=== PATIENT | female | born 1970 | race Caucasian/White ===

== ENCOUNTER → 2017-12-19 | Outpatient (CLI) | payer OTHER ==
[~2017-12-19] MED LIST: AMBIEN 10 MG TA10 MG PO; ASPIRIN81 M2 PO; BACTRIM DS TAB1 EACH PO; BRINTELLIX10 MG PO; BRINTELLIX20 MG PO; BRINTELLIX5 MG PO; BUSPAR 5 MG TABL5 M1; BUSPAR PO; CELEBREX 200 M200 M1 PO; CELEBREX 200 M200 MG PO; CLONAZEPAM 0.50.5 M1 PO; DOVONEX120 GM TP; FLEXERIL PO; HAIR SKIN NAIL1 EACH PO; HYDROCODON-ACE1 EAC5 PO; ICY HOT BALM99.2 GM TP; LAMICTAL200 MG PO; LIDOCAINE 22 %/30 GM MM; MOBIC15 MG PO; MOBIC7.5 M1 PO; MS CONTIN15 MG PO; NICORETTE2 M1 BC; NORCO 10-325 T1 EACH PO; OXYCODONE HCL 55 MG PO; OXYCONTIN15 MG PO; OXYCONTIN20 M1 PO; PERCOCET 10-321 EACH PO; PERCOCET 5-3251 EACH PO; PERCOCET 7.5-31 EACH PO; PRENATAL PO; PRILOSEC 20 MG20 MG PO; ROXICODONE5 M2 PO; SAPHRIS10 MG SL; SEROQUEL 50 MG50 MG PO; TAMSULOSIN HCL0.4 M1 PO; TRIAMCINOLONE A80 G2 TOP; VITAMIN B-1100 M1 PO; WOMEN'S DAILY1 EAC2 PO; XANAX 0.5 MG0.5 MG PO; ZANAFLEX4 MG PO; ZOFRAN ODT4 MG PO; ZOLOFT PO; ZOLOFT100 MG PO
--- NOTE | 2017-12-26 07:59 | PAINCON ---
[address] [address] PAIN MANAGEMENT CONSULTATION Name: KATY CRAVEN Room: [facility] [place]#: [id number] Admission: 12/19/17 Attend Phys: Carol Beltran Discharge: Date of : 68 Report #: [id number] THIS REPORT FOR: //name// CC: Rae Arredondo DATE OF SERVICE: 12/19/2017 HISTORY OF PRESENT ILLNESS: The patient is a 47-year-old female being treated for lumbar radiculopathy, axial back pain requiring complex medication management, history of DJD bilateral knees. Last visit on 10/24/2017, we continued the patient on MS Contin 15 mg b.i.d. (rotated from OxyContin 15 mg b.i.d.), continued on oxycodone 5 mg t.i.d. Tizanidine as needed for spasm. He returns to the pain clinic today noting medications are providing sufficient analgesia to participate in activities of daily living. She is status post bariatric surgery, weighed 340 pounds at her greatest, 220 pounds last visit down to 218 pounds today. The patient notes medications are significantly helpful. She notes she is "better" overall. She worked in 10-day shift, had 2 days off and worked in 7-day shift. With this, she still is quite functional and notes medications are significantly improving her quality of life. She rates a subjective pain at 3 on a VAS. PHYSICAL EXAMINATION: GENERAL: Shows a 47-year-old female. BMI remains elevated at 36.3 kilograms per meter squared, but she is dutifully continuing to lose weight. VITAL SIGNS: Blood pressure 121/80, pulse 84, respirations 16. MUSCULOSKELETAL: Rises from chair using the armrest. Modestly antalgic gait. Diffuse tenderness across the low back. No discrete trigger points are noted. Lower extremity strength is generally preserved. Again, gait is tandem. We reviewed the fact that opiate medications are being used to provide analgesia adequate to support activities of daily living, not attempting to achieve a specific pain score on the 0-10 Visual Analog Scale. The current opiate medications are providing sufficient analgesia to allow the patient to participate in activities of daily living. The patient is not exhibiting any aberrant behavior suggestive of drug diversion. The patient is not having any adverse reactions to medications. The patient is not suffering from daytime somnolence or mental acuity changes. The patient is managing opiate-induced constipation with appropriate kttu-pok-tmdihkv agents and dietary considerations. The patient was counseled on concern for caution with operating a motor vehicle while using opiate medications. A physical exam was performed and the patient[place] [address] PAIN MANAGEMENT CONSULTATION Name: HERBERKATY EL [facility] [id number] Admission: 12/19/17 Attend Phys: Carol Beltran Discharge: Date of : 68 Report #: [id number] All patients with back pain were advised against the bed rest greater than 4 days and were advised to return to normal activities. Pain score assessment was noted and the treatment plan was reviewed with the patient. All current medications, both prescribed and OTC were reviewed and reconciled on the electronic medical record. Tobacco screening was accomplished and smoking cessation was advised when indicated. BMI was noted and diet/exercise modification was recommended for all patients following outside normal parameters. I reviewed with the patient today their responsibilities to safeguard prescription medications, reviewed their responsibility to utilize medications only as prescribed by the physician. They are to seek and receive pain medications only from 1 physician group ( [facility]). They are to use 1 pharmacy and keep the clinic informed if they change pharmacies. Their responsibilities include making followup visits in a timely fashion and to avoid abrupt discontinuation of medication usage. Their responsibilities further include bringing their medications (bottles from the pharmacy with residual pills) to the visit for possible confirmation of pill counts and the patient understands it is their responsibility to submit to random drug screens to ensure both that the medications prescribed are present, and that no other controlled substances are present. All prescriptions provided today were generated electronically. ASSESSMENT: Symptomatic lumbar radiculopathy, axial back pain, requiring complex medication management, stable on baseline medication. RECOMMENDATIONS: Continue MS Contin 15 mg b.i.d., oxycodone 5 mg t.i.d., tizanidine as needed for spasm. Follow up in 2 months for reevaluation. We reviewed her opiate consent to treat contract. We will likely get a buccal drug swab at next visit. It appears we have not had a buccal swab in greater than a year. <ELECTRONICALLY SIGNED> By: Roshan Arredondo DO 12/26/17 0759 [id number] [id number] Arredondo DO /nt
== END ==
LOC: M.PC 04:54
DX: M54.16 Radiculopathy, lumbar region (principal); Z79.899 Other long term (current) drug therapy

== ENCOUNTER → 2018-02-13 | Outpatient (CLI) | payer OTHER ==
--- NOTE | 2018-02-18 08:35 | PAINCON ---
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 The patient required complex medication management. She had bariatric surgery, I believe, last year. Her peak weight was 340 pounds. She was down to 218 pounds at the last visit. She returns to pain clinic today, she notes current medications are providing sufficient analgesia to participate in activities of daily living. She has lost a little more weight, down to 215.4 kilograms per meter squared. BMI remains modestly elevated at 35.6 kilograms per meter squared. Blood pressure 128/66, pulse 64 and respirations 18. Cervical range of motion is good. Rises from the chair using the armrest. Diffuse axial tenderness, though primary pain is in the right knee. Notable edema here. She does have some DJD. Her car broke down and she has been walking 1 mile to and from work the last week. She is quite functional with current medication. She uses MS Contin 15 mg b.i.d., oxycodone 5 mg up to 3 a day for breakthrough pain and tizanidine 4 mg as needed for spasm. We reviewed the fact that opiate medications are being used to provide analgesia adequate to support activities of daily living, not attempting to achieve a specific pain score on the 0-10 Visual Analog Scale. The current opiate medications are providing sufficient analgesia to allow the patient to participate in activities of daily living. The patient is not exhibiting any aberrant behavior suggestive of drug diversion. The patient is not having any adverse reactions to medications. The patient is not suffering from daytime somnolence or mental acuity changes. The patient is managing opiate-induced constipation with appropriate nrni-miv-pvzvrwu agents and dietary considerations. The patient was counseled on concern for caution with operating a motor vehicle while using opiate medications. A physical exam was performed and the patient's functional status was evaluated. All patients with back pain were advised against the bed rest greater than 4 days and were advised to return to normal activities. Pain score assessment was noted and the treatment plan was reviewed with the patient. All current medications, both prescribed and OTC were reviewed and reconciled on the electronic medical record. Tobacco screening was accomplished and smoking cessation was advised when indicated. BMI was noted and diet/[place] [address] PAIN MANAGEMENT CONSULTATION Name: KATY CRAVEN [facility] [id number] Admission: 02/13/18 Attend Phys: Carol Beltran Discharge: Date of : 68 Report #: [id number] modification was recommended for all patients following outside normal parameters. I reviewed with the patient today their responsibilities to safeguard prescription medications, reviewed their responsibility to utilize medications only as prescribed by the physician. They are to seek and receive pain medications only from 1 physician group ( [facility]). They are to use 1 pharmacy and keep the clinic informed if they change pharmacies. Their responsibilities include making followup visits in a timely fashion and to avoid abrupt discontinuation of medication usage. Their responsibilities further include bringing their medications (bottles from the pharmacy with residual pills) to the visit for possible confirmation of pill counts and the patient understands it is their responsibility to submit to random drug screens to ensure both that the medications prescribed are present, and that no other controlled substances are present. All prescriptions provided today were generated electronically. ASSESSMENT: Axial back pain and osteoarthritis, bilateral knees, requiring complex medication management. RECOMMENDATIONS: Long discussion with the patient today about going to wean ongoing opioid use. She has done very well from a functional standpoint. We have elected to continue MS Contin 15 mg b.i.d. by prescription, though I suggest she try dropping her morning MS Contin and simply use oxycodone for breakthrough pain. We will continue 5 mg oxycodone up to 3 times a day. I have taken the liberty of writing for 2 months of current medication and follow up at that time. I told her that I will be leaving the practice and we will have her follow up with Dr. Sofía Fitzpatrick. I did note that there was an error in her oxycodone prescription. It was inadvertently written for OxyContin along with her MS Contin. We will contact the patient and her pharmacy and affect change (s/b oxycodone). <ELECTRONICALLY SIGNED> By: Roshan Arredondo DO 02/18/18 0835 [id number] [id number] Arredondo DO /nt
== END ==
LOC: M.PC 03:01
DX: M54.16 Radiculopathy, lumbar region (principal); M17.0 Bilateral primary osteoarthritis of knee; Z79.899 Other long term (current) drug therapy

== ENCOUNTER → 2018-04-10 | Outpatient (CLI) | payer OTHER ==
--- NOTE | 2018-04-11 07:27 | PAINCON ---
[facility] [address] [place] [address] PAIN MANAGEMENT CONSULTATION Name: KATY CRAVEN Room: [facility] [place]#: [id number] Admission: 04/10/18 Attend Phys: Carol Beltran Discharge: Date of : 68 Report #: [id number] THIS REPORT FOR: //name// CC: aRe Arredondo DATE OF SERVICE: 04/10/2018 HISTORY OF PRESENT ILLNESS: The patient is a very pleasant RN, being treated for ongoing axial back pain, history of lumbar radiculopathy. The patient has osteoarthritis affecting bilateral knees. The patient had bariatric surgery last year. Her peak weight was 340 pounds. She continues to lose weight. She is down to 202 pounds today; she was 218 pounds at last visit. She continues to lose weight. She is physically active. She notes that with weight loss, her knee pain is significantly improving. She still has some axial back and lumbar radicular pain requiring complex medication management. The patient currently is stable on MS Contin 15 mg b.i.d., oxycodone 5 mg t.i.d. This equates to about 52.5 mg morphine equivalents a day. Just barely beyond the 0-50 low risk category. She is doing well with current medication. Rates her pain a 4 on a VAS, has good days where pain is a 0, bad days where it is an 8. Notes pain is exacerbated with physical activity. She tried dropping her morphine tablet to 1 a day, but her functional status decreased and pain increased. PHYSICAL EXAMINATION: GENERAL: Otherwise shows 5 feet 5 inches, 202 pounds female, BMI is 33.6 kilograms per meter squared. VITAL SIGNS: Blood pressure 102/74, pulse 57, respiratory rate 16. NEUROLOGIC: Alert and oriented to person, place and time, judged to be a reasonable historian. MUSCULOSKELETAL: Rises from chair easily. Gait is generally tandem. Diffuse tenderness across the low back. No discrete trigger points are noted. Lower extremity strength is preserved at this time. We reviewed the fact that opiate medications are being used to provide analgesia adequate to support activities of daily living, not attempting to achieve a specific pain score on the 0-10 Visual Analog Scale. The current opiate medications are providing sufficient analgesia to allow the patient to participate in activities of daily living. The patient is not exhibiting any aberrant behavior suggestive of drug diversion. The patient is not having any adverse reactions to medications. The patient is not suffering from daytime somnolence or mental acuity changes. The patient is managing opiate-induced constipation with appropriate vnmc-mhf-toescig agents and dietary considerations. The patient was counseled on concern [place] [address] PAIN MANAGEMENT CONSULTATION Name: KATY CRAVEN [id number] Admission: 04/10/18 Attend Phys: Carol Beltran Discharge: Date of : 68 Report #: [id number] a motor vehicle while using opiate medications. A physical exam was performed and the patient's functional status was evaluated. All patients with back pain were advised against the bed rest greater than 4 days and were advised to return to normal activities. Pain score assessment was noted and the treatment plan was reviewed with the patient. All current medications, both prescribed and OTC were reviewed and reconciled on the electronic medical record. Tobacco screening was accomplished and smoking cessation was advised when indicated. BMI was noted and diet/exercise modification was recommended for all patients following outside normal parameters. I reviewed with the patient today their responsibilities to safeguard prescription medications, reviewed their responsibility to utilize medications only as prescribed by the physician. They are to seek and receive pain medications only from 1 physician group ( [facility]). They are to use 1 pharmacy and keep the clinic informed if they change pharmacies. Their responsibilities include making followup visits in a timely fashion and to avoid abrupt discontinuation of medication usage. Their responsibilities further include bringing their medications (bottles from the pharmacy with residual pills) to the visit for possible confirmation of pill counts and the patient understands it is their responsibility to submit to random drug screens to ensure both that the medications prescribed are present, and that no other controlled substances are present. All prescriptions provided today were generated electronically. ASSESSMENT: Chronic axial back pain, lumbar radiculopathy requiring complex medication management, component of osteoarthritis affecting bilateral knees. RECOMMENDATION: Long with the patient today about therapeutic option. She has been stable on baseline medications. We will have her follow up with Dr. Lee Fitzpatrick for ongoing care. Reviewing the chart, it appears the last random drug screen was in 01/2017. She has had no aberrant behavior suggestive of drug diversion. May suggest we get a random drug screen at next visit, simply to comply with opiate consent to treat contract. Otherwise, the patient is stable on baseline medications. I have taken the liberty of renewing current medication for multi-month. <ELECTRONICALLY SIGNED> By: Roshan Arredondo DO 04/11/18 0727 1402 [id number] Arredondo DO /nt
== END ==
LOC: M.PC 05:01
DX: M54.16 Radiculopathy, lumbar region (principal); M17.0 Bilateral primary osteoarthritis of knee; M54.5 Low back pain; G89.29 Other chronic pain; Z79.899 Other long term (current) drug therapy

== ENCOUNTER → 2018-06-04 | Outpatient (CLI) | payer OTHER ==
--- NOTE | 2018-06-12 16:41 | PAINCON ---
[address] [address] PAIN MANAGEMENT CONSULTATION Name: KATY CRAVEN [facility] [place]#: [id number] Admission: 06/04/18 Attend Phys: Garima Fitzpatrick MD Discharge: Date of : 68 Report #: [id number] THIS REPORT FOR: //name// CC: Rae Jordan DATE OF SERVICE: 06/04/2018 CHIEF COMPLAINT: Low back pain and axial back pain. HISTORY OF PRESENT ILLNESS: The patient is a 48-year-old female who has been seen and followed in the Pain Clinic by Dr. Roshan Arredondo. This is my first visit with the patient. She is a registered nurse. She has chronic ongoing axial back pain. She has a history of lumbar radiculopathy. She has some osteoarthritis, which has been involving both her knees. She has had bariatric surgery. She states that she was 340 pounds, has lost 170 pounds. She feels much better at this juncture. She has lost 12 pounds since she was here last. She remains physically active. She overall feels that things are going much better. She has had no complications from her procedures at this juncture. She finds that her current medical regimen of MS Contin and oxycodone are helpful. She has returned today for renewal of her medications. As you recall, she has a q. year problem with her back. She states that there is some mobility of some of the disks between L3-L4 and L4-L5. When the "vertebral bodies hit one another," she gets some exquisite pain. She states that it is a genetic problem. She is adopted. She has returned today for renewal of her medications. ALLERGIES: DIPHENHYDRAMINE AND ROCEPHIN. CURRENT MEDICATIONS: Vitamin C, Saphris 10 mg sublingual at bedtime, Dovonex 220 mg topical cream, clonazepam 0.5 mg b.i.d., Lamictal 200 mg b.i.d., Lidoderm jelly 2%, morphine ER 15 mg b.i.d., calcium, Nicorette gum 2 grams, Prilosec 20 mg, Roxicodone 5 mg t.i.d., vitamins, vitamin B1, Zanaflex 4 mg. PAST MEDICAL HISTORY: 1. Chronic bipolar type disorder. 2. Sympathetic lumbar radiculopathy. 3. Lumbar spondylosis. 4. Venous insufficiency with lymphatic overload. PAST SURGICAL HISTORY: Birthmark was removed. [place] teeth were extracted. Radiofrequency lesioning on 2 occasions in the low back area. 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 [address] PAIN MANAGEMENT CONSULTATION Name: KATY CRAVEN Room: [facility]#: [id number] Admission: 06/04/18 Attend Phys: Garima Fitzpatrick MD Discharge: Date of : 68 Report #: [id number] REVIEW OF SYSTEMS: Generally good health. Wears glasses. Otherwise, unremarkable. Varicose veins, numbness and tingling sensation lower back, nervousness, depression, and insomnia. LABORATORY DATA: No new laboratory values are available at the time of our interview. PAIN CLINIC ASSESSMENT: 1. Osteoarthritis. The patient states she is not being treated for osteoarthritis, but does have arthritic changes in her low back area. 2. Height 5 feet 5 inches. Weight 190 pounds, BMI is 31.8. 3. Vital signs: Blood pressure 139/53, heart rate 76, respiratory rate 16, room air saturation 96%, temperature 98.4. 4. Pain intensity 01/22, the patient states her baseline is about 3. 5. Fall risk. The patient has not fallen in the last 3 months. 6. Blood thinner. The patient is not on a blood thinning medication. 7. History of hypertension. The patient is not being treated for hypertension. 8. Opioid therapy. The patient receives her medications through the Pain Clinic. 9. Risk assessment. 10. Functional assessment. 11. Recreational drugs. The patient denies use of recreational drugs. 12. Tobacco: The patient stopped tobacco in 2010, had a 23-year smoking history. 13. Alcohol use. The patient denies use of alcoholic beverages. PHYSICAL EXAMINATION: GENERAL: The patient is a well-developed, well-nourished white female. Appears her stated age. She is slightly obese. HEENT: Normocephalic, atraumatic. Extraocular eye muscles intact. Sclerae nonicteric. Mucous membranes are moist. The patient has dentures. NECK: With good range of motion without bruits or adenopathy. LUNGS: Clear to auscultation. HEART: Regular rate. S1, S2. ABDOMEN: Nontender, slightly protuberant. MUSCULOSKELETAL: Upper extremity muscle strength showed to be 5/5 for the major muscle groups with 5/5 building maintenance superintendent strength. Lower extremity without significant scoliosis, kyphosis, or lordosis. The patient states that she has not had back surgery. She has some pain and discomfort, which radiates down into the right lower back in the L5-S1 dermatomal distribution. IMPRESSION: 1. Chronic low back pain treated with complex medical management. 2. Chronic bipolar type disorder. 3. Sympathetic lumbar radiculopathy. 4. Lumbar spondylosis. [facility] [address] [place] [address] PAIN MANAGEMENT CONSULTATION Name: KATY CRAVEN Room: [facility]#: [id number] Admission: 06/04/18 Attend Phys: Garima Fitzpatrick MD Discharge: Date of : 68 Report #: [id number] 5. Venous insufficiency with lymphatic overload. RECOMMENDATIONS: We discussed treatment options with the patient. We will continue with her current medical regimen. She feels overall that things are going reasonably well with the oxycodone as well as with the morphine. The patient would like to have her medications renewed. She feels that they enable her to remain gainfully employed. She has had injections in the past and may consider an injection in the future. At this juncture, she feels that things are going reasonably well and would like to continue with a conservative approach. A script for her medications has been written. We would like to thank you for letting us participate in her care. We hope she continues to improve. <ELECTRONICALLY SIGNED> By: Garima Fitzpatrick MD 06/12/18 1641 1202 1933N. Lee Fitzpatrick MD /nt
== END ==
LOC: M.PC 04:46
DX: M47.26 Other spondylosis with radiculopathy, lumbar region (principal); G89.29 Other chronic pain; I87.2 Venous insufficiency (chronic) (peripheral); F31.81 Bipolar II disorder; Z79.899 Other long term (current) drug therapy

== ENCOUNTER → 2018-08-01 | Outpatient (CLI) | payer OTHER ==
--- NOTE | 2018-08-28 16:08 | PAINCON ---
[address] [address] PAIN MANAGEMENT CONSULTATION Name: KATY CRAVEN Room: [facility]le#: [id number] Admission: 08/01/18 Attend Phys: Garima Fitzpatrick MD Discharge: Date of : 68 Report #: [id number] THIS REPORT FOR: //name// CC: Rae Fitzpatrick DATE OF SERVICE: 08/01/2018 HISTORY: Here for medication renewal. HISTORY OF PRESENT ILLNESS: The patient is a 48-year-old female who has been seen in the pain clinic. As you recall, she suffered from axial back pain. The patient is a registered nurse. She has had some continued axial back pain. Finds that her medications are helpful or helped with her current medical regimen. She has pain, which has radiated down into back in the lumbar radicular pattern. She has some osteoarthritis, which involves both her knees. She has had bariatric surgery. She has lost a total of 170 pounds. She remains physically active. She has had no problem with her medications. Feels that the medications are helpful and has returned today for renewal of her medications. She feels that sometimes she is experiencing some pain and discomfort in the L3-L4 and L4-L5 areas with certain movements. ALLERGIES: DIPHENHYDRAMINE AND ROCEPHIN. CURRENT MEDICATIONS: Vitamin C, Saphris 10 mg sublingual at bedtime, Dovonex 220 mg topical cream, clonazepam 0.5 mg b.i.d., Lamictal 200 mg b.i.d., Lidoderm jelly 2%, morphine ER 15 mg b.i.d., calcium, Nicorette gum 2 grams, Prilosec 20 mg, Roxicodone 5 mg t.i.d., vitamins, vitamin B and Zanaflex 4 mg. PAIN CLINIC/PQRS: 1. Osteoarthritis. The patient states that she does have osteoarthritic changes in her low back area. 2. Height 5 feet 5 inches, weight 183 pounds, BMI is 30. 3. Vital signs: Blood pressure 124/71, heart rate 55, respiratory rate 16, room air saturation 100% and temperature 98.2. 4. Pain score 4/10. 5. Fall risk. The patient has not fallen in the last 3 months. 6. Blood thinner. The patient is not on a blood thinning medication. 7. History of hypertension. The patient has not been treated for hypertension. 8. Opiate therapy. The patient received medications through the pain clinic only. 9. Risk assessment tool. 10. Functional assessment tool. 11. Recreational drug use. The patient denies use of recreational drugs. 12. Tobacco: The patient stopped tobacco in 2010, had a year smoking history. 13. Alcohol: The [place] [address] PAIN MANAGEMENT CONSULTATION Name: KATY CRAVEN Room: [facility]#: [id number] Admission: 08/01/18 Attend Phys: Garima Fitzpatrick MD Discharge: Date of : 68 Report #: [id number] PHYSICAL EXAMINATION: GENERAL: The patient is a well-developed, well-nourished white female. Appears her stated age. She is slightly obese. Affect is appropriate. Speech is fluent. HEENT: Normocephalic, atraumatic. Extraocular eye muscles intact. Sclerae nonicteric. Mucous membranes are moist. The patient has dentures. NECK: With good range of motion without bruits or adenopathy. LUNGS: Clear to auscultation. HEART: Regular rate. S1, S2. ABDOMEN: Nontender, slightly protuberant, bowel sounds present. MUSCULOSKELETAL: Upper extremity muscle straight judged to be 5/5 for the major muscle groups in the upper extremity with 5/5 group muscle cramping power. Lower extremity without significant scoliosis, kyphosis or lordosis. The patient states that she has not had back surgery. Does have some pain and discomfort in the low back area. Pain that radiates down into the L5-S1 dermatomal distribution. IMPRESSION: 1. Chronic low back pain treated with complex medical management. 2. Bipolar disorder. 3. Sympathetic lumbar radiculopathy. 4. Lumbar spondylosis. 5. Venous insufficiency and lymphatic overload. RECOMMENDATIONS: We discussed treatment options with the patient. At this juncture, we will continue with her current medications. Risks and benefits of opioid medications were again reviewed. Possible complication of the procedure of use of these medications, which could include dependence as well as less effective pain relief at the time from tolerance can develop. Overall, the patient feels the medications are helpful. She would like to continue with her use. We will renew the patient's medications. She will follow up in the future as needed. We would like to thank you for letting us participate in her care. We hope she continues to improve. <ELECTRONICALLY SIGNED> By: Garima Fitzpatrick MD 08/28/18 1608 [id number]. Lee Fitzpatrick MD /nt
== END ==
LOC: M.PC 05:28
DX: M47.26 Other spondylosis with radiculopathy, lumbar region (principal); G89.29 Other chronic pain; F31.9 Bipolar disorder, unspecified; I87.2 Venous insufficiency (chronic) (peripheral); Z79.899 Other long term (current) drug therapy

== ENCOUNTER → 2018-08-27 | Outpatient (CLI) | payer OTHER ==
[2018-08-27 14:50] LABS: HEMATOCRIT 39.4 % (37.0-47.0); HEMOGLOBIN 12.8 gm/dL (12.0-15.0); MCH 28.3 pg (26.0-34.0); MCHC 32.6 g/dL (28.0-37.0); MCV 86.8 fL (80.0-100.0); MPV 8.9 fl. (7.2-11.1); RBC 4.53 mil/uL (4.20-5.00); RDW-CV 14.7 % (10.5-14.5); WBC 6.2 thou/uL (4.0-11.0)
== END ==
LOC: M.LAB 14:33
PROVIDERS: Internal Medicine
DX: D64.9 Anemia, unspecified (principal)

== ENCOUNTER → 2018-09-17 | Outpatient (CLI) | payer OTHER ==
--- NOTE | 2018-09-20 17:20 | PAINCON ---
[address] [address] PAIN MANAGEMENT CONSULTATION Name: HERBERKATY EL [id number] Admission: 09/17/18 Attend Phys: Garima Fitzpatrick MD Discharge: Date of : 68 Report #: [id number] THIS REPORT FOR: //name// CC: Rae Fitzpatrick DATE OF SERVICE: 09/17/2018 PRIMARY CARE PHYSICIAN: Rae Banks DO FOLLOWUP: Here for medication renewal. HISTORY: The patient is a 48-year-old female who has been followed in the pain clinic. As you recall, she has chronic back pain. 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 This pain sometimes impacts upon her ability to do nursing. She sometimes experiences pain, radiation down to the lumbar area. She has some osteoarthritic changes involving both knees. She has had bariatric surgery. She has lost a total of 170 pounds. Remains physically active. Finds that her medications are helpful and not problematic. She is able to think clearly. There is no clouding of her sensorium. Overall, she feels that the medication helped when she would like to continue with them. She has been having some pain and discomfort in the L3-L4 and L4-L5 areas with certain activities of movement. ALLERGIES: DIPHENHYDRAMINE, ROCEPHIN. CURRENT MEDICATIONS: Vitamin C, Saphris 10 mg sublingual at bedtime, Dovonex ____ topical cream, clonazepam 0.5 mg b.i.d., Lamictal 200 mg b.i.d., Lidoderm jelly 2%, morphine ER 15 mg b.i.d., calcium, Nicorette gum 2 g, Prilosec 20 mg, oxycodone 5 mg t.i.d., vitamins, vitamin D, Zanaflex 4 mg. PAIN CLINIC ASSESSMENT/PQRS: 1. Osteoarthritis. The patient states that she does have some osteoarthritic changes in her low back area. She has not been treated for rheumatoid arthritis. 2. Height 5 feet 5 inches, weight 178 pounds, BMI is 29.7. 3. Vital signs: Blood pressure 126/52, heart rate 56, respiratory rate 16, room air saturation 99%, temperature 98.3. 4. Pain score 4-5/10. 5. Fall risk. The patient has not fallen in the last 3 months. 6. Blood thinner. The patient is not on blood thinning medication. 7. History of hypertension. The patient is not being treated for hypertension. 8. Opioid therapy greater than 6 weeks. The patient has received her medication from one source, the pain clinic. 9. Risk assessment tool, low for opioid abuse. 10. [place] [address] PAIN MANAGEMENT CONSULTATION Name: KATY CRAVEN Room: [facility]#: [id number] Admission: 09/17/18 Attend Phys: Garima Fitzpatrick MD Discharge: Date of : 68 Report #: [id number] 11. Recreational drug use. The patient denies use of recreational drugs. 12. Tobacco: The patient stopped smoking in 2010, had a number of years smoking history. 13. Alcohol: The patient denies use of alcoholic beverages at this juncture. PHYSICAL EXAMINATION: GENERAL: The patient is a well-developed, well-nourished white female. Appears her stated age. She is alert and oriented x 3. Slightly obese. Affect is appropriate. Speech is fluent. HEENT: Normocephalic, atraumatic. Extraocular eye muscles intact. Sclerae nonicteric. Mucous membranes are moist. The patient has dentures. NECK: With good range of motion without bruits or adenopathy. LUNGS: Clear to auscultation. HEART: Regular rate. S1, S2. ABDOMEN: Nontender, slightly protuberant, bowel sounds present. MUSCULOSKELETAL: Upper extremity muscle strength to be 5/5 for the major muscle groups in the upper extremity and 5/5 for the lower extremities without significant scoliosis, kyphosis or lordosis. The patient states that she feels that her medications are helpful. Pain radiates down into the L5-S1 dermatomal distribution. IMPRESSION: 1. Chronic low back pain treated with complex medical management. 2. Bipolar disorder. 3. Symptomatic lumbar radiculopathy. 4. Lumbar spondylosis, venous insufficiency and lymphatic overload. RECOMMENDATIONS: We discussed treatment options with the patient. At this juncture, we will continue with her medication. A script for her medications of oxycodone 5 mg 1 p.o. t.i.d. and morphine sulfate 15 mg 1 p.o. b.i.d. have been rewritten. The patient will continue with tizanidine to help with the muscle spasms. She will call us if she has any concerns. We would like to thank you for letting us participate in her care. We hope she continues to improve. <ELECTRONICALLY SIGNED> By: Garima Fitzpatrick MD 09/20/18 1720 [id number]. Lee Fitzpatrick MD /PMT
== END ==
LOC: M.PC 05:23
DX: M47.26 Other spondylosis with radiculopathy, lumbar region (principal); G89.29 Other chronic pain; F31.9 Bipolar disorder, unspecified; I87.2 Venous insufficiency (chronic) (peripheral); Z79.899 Other long term (current) drug therapy

== ENCOUNTER → 2018-11-12 | Outpatient (CLI) | payer OTHER ==
--- NOTE | ~2018-11-12 | PAINCON ---
[address] [address] PAIN MANAGEMENT CONSULTATION Name: HERBERKATY EL Room: [facility] Chelle#: [id number] Admission: 11/12/18 Attend Phys: Garima Fitzpatrick MD Discharge: Date of : 68 Report #: [id number] THIS REPORT FOR: //name// CC: Rae Chandler DATE OF SERVICE: 11/12/2018 CHIEF COMPLAINT: "Here for medications. Things are going pretty good." HISTORY OF PRESENT ILLNESS: The patient is a 48-year-old female who has been followed in the pain clinic. As you recall, she continues to have chronic back pain. 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 Feels that the medications quite helpful and enables her to engage in activities of daily living, she would not be able to do without their use. Continues to have pain that radiates down into the lumbar area. Notes that walking stairs, going from a sitting to a standing position as well as activities which entails bending and twisting exacerbate her pain and discomfort. Feels that she is able to think clearly. No problems with the medications. She has pain in the L3-L4, L4-L5 areas with certain movements. ALLERGIES: DIPHENHYDRAMINE AND ROCEPHIN. CURRENT MEDICATIONS: Vitamin C, Saphris 10 mg sublingual at bedtime, Dovonex topical cream, clonazepam 0.5 mg b.i.d., Lamictal 200 mg b.i.d., Lidoderm jelly 2% morphine extended release 15 mg b.i.d., calcium, Nicorette gum 2 grams, Prilosec 20 mg, oxycodone, 5 t.i.d., vitamins, vitamin D, and Zanaflex 4 mg. PAIN CLINIC ASSESSMENT/PQRS: 1. Osteoarthritis. The patient states that she has some osteoarthritic changes in the low back. She has not been treated for rheumatoid arthritis. 2. Height 5 feet 5 inches, weight 175 pounds, BMI is 28. 3. Vital signs: Blood pressure 130/82, heart rate 51, respiratory rate 16, room air saturation 98%, and temperature 98.5. 4. Pain intensity 12/22. 5. Fall risk. The patient has not fallen in the last 3 months. 6. Blood thinner. The patient is not on a blood thinning medication. 7. Hypertension. The patient has not been treated for hypertension. 8. Opioid greater than 6 weeks. The patient received her medications through one source, the Pain Clinic. 9. Assessment risk low for opioids. 10. Functional assessment tool. 11. Recreational drug use. The patient denies use of recreational drugs. 12. Tobacco: The patient has stopped smoking since [address] [address] PAIN MANAGEMENT CONSULTATION Name: KATY CRAVEN [id number] Admission: 11/12/18 Attend Phys: Garima Fitzpatrick MD Discharge: Date of : 68 Report #: [id number] 13. Alcohol: The patient denies use of alcoholic beverages. PHYSICAL EXAMINATION: GENERAL: The patient is a well-developed, well-nourished white female. Appears her stated age. She is alert and oriented x 3. Affect is appropriate. Speech is fluent. HEENT: Normocephalic, atraumatic. Extraocular eye muscles intact. Sclerae nonicteric. The patient uses dentures. NECK: With good range of motion without bruits or adenopathy. LUNGS: Clear to auscultation. HEART: Regular rate. S1, S2. ABDOMEN: Nontender, slightly protuberant, bowel sounds present. MUSCULOSKELETAL: Upper extremity muscle strength is judged to be 5/5 for the upper extremities. Lower extremities 5/5. The patient without significant scoliosis, kyphosis or lordosis. The patient does have some pain that radiates down into the L5-S1 dermatomal distribution. IMPRESSION: 1. Chronic low back pain treated with complex medical management. 2. Bipolar disorder. 3. Some dramatic lumbar radiculopathy. 4. Lumbar spondylosis, venous insufficiency and lymphatic overload. RECOMMENDATIONS: We discussed treatment with the patient. She feels her medications are working reasonably well. She does not have any problems with them. She feels her medication unable her to continue to be active. She does not have any problems with mentation. 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 She would like to continue with the medication. A script for her medications of oxycodone 5 mg 1 p.o. t.i.d., MS Contin 15 mg b.i.d. and Zanaflex have all been rewritten. The patient will call if she has any concerns. We would like to thank you for letting us participate in her care. We hope she continues to improve. By: [id number]. Lee Fitzpatrick MD /marianela
== END ==
LOC: M.PC 04:55
DX: M47.26 Other spondylosis with radiculopathy, lumbar region (principal); I87.2 Venous insufficiency (chronic) (peripheral); R59.9 Enlarged lymph nodes, unspecified; F31.9 Bipolar disorder, unspecified; Z79.899 Other long term (current) drug therapy

== ENCOUNTER → 2019-03-20 | Outpatient (CLI) | payer OTHER ==
--- NOTE | ~2019-03-20 | PAINCON ---
[facility] [address] [place] [address] PAIN MANAGEMENT CONSULTATION Name: HERBERKATY EL [id number] Admission: 03/20/19 Attend Phys: Garima Fitzpatrick MD Discharge: Date of : 68 Report #: [id number] THIS REPORT FOR: //name// CC: Rae Jordan DATE OF SERVICE: 03/20/2019 FOLLOWUP COMPLAINT: Here for medication renewal. HISTORY OF PRESENT ILLNESS: The patient is a 48-year-old female who has been followed in the pain clinic. As you recall, she has continued chronic back pain. She rates her pain today as a 3-4. She finds that the medications are helpful. She has pain in the low back area. She has continued to work at weight loss. She has lost 18 pounds since October. Notes that her pain is worse when she is climbing stairs, sitting and going from a sitting to a standing position, bending and certain other activities of daily living. She feels that her medication of OxyIR, MS Contin and tizanidine are beneficial. She is taking the medications as prescribed. She has returned today with a desire to renew her medications. 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 ALLERGIES: DIPHENHYDRAMINE AND ROCEPHIN. CURRENT MEDICATIONS: Vitamin C, Saphris 10 mg sublingual at bedtime, Dovonex topical creams, clonazepam 0.5 mg b.i.d., Lamictal 200 mg b.i.d., Lidoderm jelly 2%, morphine extended release 15 mg b.i.d., calcium, Nicorette gum 2 grams, Prilosec 20 mg, oxycodone 5 mg t.i.d., vitamins, vitamin D, Zanaflex 4 mg. PAIN CLINIC ASSESSMENT AND PQRS: 1. The patient states that she has some osteoarthritic changes in her low back. She is not being treated for rheumatoid arthritis. 2. Height 5 feet 5 inches, weight 157 pounds, BMI is 26. 3. Vital signs: Blood pressure 106/48, heart rate 81, respiratory rate 16, room air saturation 99%, temperature 98.2. 4. Pain intensity 3-01/22. 5. Fall history. The patient has not fallen in the last 3 months. 6. Blood thinner. The patient is not on a blood thinning medication. 7. Hypertension. The patient is not being treated for hypertension. 8. Opioids greater than 6 weeks. The patient receives medications through one source, the pain clinic. 9. Risk assessment tool. 10. Recreational drug use. The patient denies. 11. Tobacco: The patient has stopped smoking, has not smoked since 2010. 12. Alcohol: The patient [place] [address] PAIN MANAGEMENT CONSULTATION Name: KATY CRAVEN [facility] [id number] Admission: 03/20/19 Attend Phys: Garima Fitzpatrick MD Discharge: Date of : 68 Report #: [id number] PHYSICAL EXAMINATION: GENERAL: The patient is a well-developed, well-nourished, white female. Appears her stated age. She is alert and oriented x 3. Her affect is appropriate. Speech is fluent. HEENT: Normocephalic, atraumatic. Extraocular eye muscles intact. Sclerae nonicteric. Mucous membranes are moist. NECK: Without adenopathy or JVD. HEART: Regular rate. ABDOMEN: Nontender, protuberant. Bowel sounds present. MUSCULOSKELETAL: Without significant scoliosis, kyphosis or lordosis. Upper extremity muscle strength is judged to be 5/5 for the major muscle groups. Lower extremity 5-/5. The patient does have pain, which presently radiates down to the L5-S1 dermatomal distribution. IMPRESSION: 1. Chronic low back pain, treated with complex medical management. 2. History of bipolar disorder. 3. Traumatic lumbar radiculopathy. 4. Lumbar spondylosis. 5. Venous insufficiency and lymphatic overload. RECOMMENDATIONS: We discussed treatment options with the patient. At this juncture, we will continue with her medications. A script for her medications have been renewed. She will continue with the oxycodone 5 mg 1 p.o. t.i.d. as well as MS Contin 15 mg 1 p.o. b.i.d. The patient will also continue with the tizanidine 4 mg p.o. t.i.d. for muscle spasms. She will continue her medication and take it as prescribed. The patient is aware of the problems with opioids. She has seen in the news, the problems associated with drug overdoses. A 70,000 people last year as a result of overdose. She is also aware that opioid medications can over time become less effective secondary to development of tolerance. We have renewed her medications. She will follow up in the near future. She will call us if she has any concerns. The patient is considering surgical option for removal of excess skin secondary to her weight loss. We would like to thank you for letting us participate in her care. By: [id number]. Lee Fitzpatrick MD /KATARINA
== END ==
LOC: M.PC 05:36
DX: Z76.0 Encounter for issue of repeat prescription (principal); M47.26 Other spondylosis with radiculopathy, lumbar region; G89.29 Other chronic pain; I87.2 Venous insufficiency (chronic) (peripheral); Z79.899 Other long term (current) drug therapy

== ENCOUNTER → 2019-05-20 | Outpatient (CLI) | payer OTHER | LOC: M.PC 05:03 | DX: M47.26 Other spondylosis with radiculopathy, lumbar region (principal); F31.9 Bipolar disorder, unspecified; I87.2 Venous insufficiency (chronic) (peripheral); Z79.899 Other long term (current) drug therapy; Z79.891 Long term (current) use of opiate analgesic; Z88.8 Allergy status to other drugs, medicaments and biological substances ==

== ENCOUNTER → 2019-07-08 | Outpatient (CLI) | payer OTHER ==
[~2019-07-08] MED LIST changes: +SERTRALINE HCL50 MG PO
--- NOTE | ~2019-07-08 | PAINCON ---
[address] [address] PAIN MANAGEMENT CONSULTATION Name: KATY CRAVEN Room: [facility]#: [id number] Admission: 07/08/19 Attend Phys: Garima Fitzpatrick MD Discharge: Date of : 68 Report #: [id number] THIS REPORT FOR: //name// CC: Rae Fitzpatrick DATE OF SERVICE: 07/08/2019 CHIEF COMPLAINT: Low back pain with pain that is radiating down into the right buttocks and posterior leg. HISTORY: The patient is a 49-year-old female who has been followed in the pain clinic because of chronic pain in her low back area. She has had chronic back pain for a number of years. She recently started noticing pain that has been radiating down to her right buttocks area. Notes that the pain is more problematic with certain positions. Notes that bending patient note pain that radiates down into the lower buttocks area. She has used a pillow to help try and decrease the amount of discomfort while sitting. Feels that her medications of oxycodone and morphine continue to be beneficial. She has taken the medication as prescribed. She does not have any complications. At this point, because of the pain that is radiating down to her right leg and into the thigh, she feels that imaging might be helpful and she would like to consider the possibility of epidural steroid injection. She feels that her medications enable her to stay active. She is unable to take nonsteroidal anti-inflammatory medications because of history of gastric bypass. ALLERGIES: DIPHENHYDRAMINE AND ROCEPHIN. CURRENT MEDICATIONS: Vitamin C, Saphris 10 mg sublingual at bedtime, Lovenox topical creams, clonazepam 0.5 mg b.i.d., Lamictal 200 mg b.i.d., Lidoderm jelly 2%. Morphine extended release 15 mg, calcium, Nicorette gum 2 ____, Prilosec 20 mg, oxycodone 5 mg 1 p.o. t.i.d., vitamins, vitamin D, and Zanaflex. PAIN CLINIC ASSESSMENT AND PQRS: 1. The patient has some osteoarthritic changes in her low back. She is not being treated for rheumatoid arthritis. 2. Height 5 feet 5 inches, weight 155 pounds, BMI is 25. 3. Vital signs: Blood pressure 97/45, heart rate 67, respiratory rate 16, room air saturation 96%, and temperature 97.5. 4. Pain intensity is 4/10. 5. Fall history: The patient has not fallen in the last 3 months. 6. Blood thinner. The patient is not on a blood thinning medication. 7. Hypertension. The patient is not being treated for hypertension. 8. Opioids greater than 6 weeks. The patient received medication from one source, pain clinic. 9. Risk assessment tool, [place] [address] PAIN MANAGEMENT CONSULTATION Name: KATY CRAVEN Room: [facility]#: [id number] Admission: 07/08/19 Attend Phys: Garima Fitzpatrick MD Discharge: Date of : 68 Report #: [id number] 10. Functional assessment tool. 11. Recreational drug use. The patient denies. 12. Tobacco: The patient stopped smoking in 2010. PHYSICAL EXAMINATION: GENERAL: The patient is a well-developed, well-nourished white female. Appears her stated age. She is alert and oriented x 3. Her affect is appropriate. Speech is fluent. HEENT: Normocephalic, atraumatic. Extraocular eye muscles intact. Sclerae nonicteric. Mucous membranes are moist. NECK: Without adenopathy or JVD. HEART: Regular rate. ABDOMEN: Nontender. Bowel sounds present. EXTREMITIES: Upper extremity muscle strength judged to be 5/5 for the major muscle groups in the upper extremity. The patient has pain and discomfort in lower portion of her back with pain that radiates down from the lower portion of her back into the right buttocks and posterior portion of the leg in the L5-S1 dermatomal distribution. The patient has positive straight leg raise. IMPRESSION: 1. Low back pain with pain and discomfort in the L4-L5 dermatomal distribution. 2. History of bipolar disease. 3. Chronic lumbar radiculopathy. 4. Lumbar spondylosis. 5. Venous insufficiency and lymphatic overload. 6. Chronic pain in the back, treated with complex medical management using opioids. RECOMMENDATIONS: We discussed treatment options with the patient. At this juncture, she feels her medications continue to be helpful. She is able to work without mental impairment. She feels the medications continue to make her activities of daily living much more tolerable. She is having pain that is radiating down the lower portion of her back and down to the right leg to the thigh in the L5-S1 dermatomal distribution. We will proceed with an epidural steroid injection in the future should we need. The patient will undergo an MRI to evaluate the low back area. The patient has lost about 150 pounds. She did have weight greater than 300 pounds before the bypass. At this juncture, she is down to 155 pounds. We will continue with her OxyIR 5 mg 1 p.o. t.i.d. Script for this medication has been written for the next 2 months. The patient will also continue with morphine sulfate 15 mg 1 p.o. b.i.d. for the next 2 months. She feels that the Zanaflex medication is helpful. A script for this medication has been written to help with muscle spasms. We would like to thank you for letting us participate in her care. Overall, things are about 50% improved with her current medical [place] [address] PAIN MANAGEMENT CONSULTATION Name: KATY CRAVEN Room: [facility]#: [id number] Admission: 07/08/19 Attend Phys: Garima Fitzpatrick MD Discharge: Date of : 68 Report #: [id number] us after she has had the MRI. We will then evaluate and see whether or not she would like to proceed with a lumbar epidural steroid injection. By: [id number]. Lee Fitzpatrick MD /marianela
== END ==
LOC: M.PC 08:30
DX: M47.26 Other spondylosis with radiculopathy, lumbar region (principal); G89.29 Other chronic pain; I87.2 Venous insufficiency (chronic) (peripheral); F31.9 Bipolar disorder, unspecified; Z79.899 Other long term (current) drug therapy; Z79.891 Long term (current) use of opiate analgesic

== ENCOUNTER → 2019-09-04 | Outpatient (CLI) | payer OTHER ==
[~2019-09-04] MED LIST changes: +RISPERDAL 1 MG T1 MG PO; +[UNRECOGNIZED DRUG - OTHER]; +[UNRECOGNIZED DRUG - OTHER] PO
--- NOTE | 2019-09-16 09:09 | PAINCON ---
[address] [address] PAIN MANAGEMENT CONSULTATION Name: KATY CRAVEN Room: [facility] [place]#: [id number] Admission: 09/04/19 Attend Phys: Garima Fitzpatrick MD Discharge: Date of : 68 Report #: [id number] THIS REPORT FOR: //name// CC: ADAN Fitzpatrick DATE OF SERVICE: 09/04/2019 PRIMARY CARE PHYSICIAN: Adan Banks DO CHIEF COMPLAINT: Low back pain. HISTORY: The patient is a 49-year-old female who has been followed in the pain clinic because of pain. She has pain in the right buttocks area as well as pain in the posterior portion of her leg. This has been chronic for a number of years. She has had pain that has been radiating down into her right buttocks. Certain positions exacerbate her discomfort. Feels overall that her pain is 75% improved with her current medical regimen. She is not having any problems with her thinking. She finds that her sensorium is clear. States that she has taken her medications as prescribed. She has used epidural steroid injections in the past. At this juncture, she feels that things are going reasonably well and would like to continue with conservative treatment. She is unable to use nonsteroidal anti-inflammatory medications because of history of gastric bypass. ALLERGIES: DIPHENHYDRAMINE AND ROCEPHIN. CURRENT MEDICATIONS: Vitamin C, Saphris 10 mg sublingual at bedtime, Lovenox, topical creams, clonazepam 0.5 mg b.i.d., Lamictal 200 mg b.i.d., Prilosec 20 mg, Lidoderm jelly 2%, morphine extended release 15 mg, calcium, Nicorette gum, oxycodone 5 mg 1 p.o. t.i.d., vitamins, vitamin D, and Zanaflex. PAIN CLINIC ASSESSMENT/PQRS: 1. The patient has some osteoarthritic changes in the low back area. She is not being treated for rheumatoid arthritis. 2. Height 5 feet, weight 151 pounds, BMI is 24.4. 3. Vital signs: Blood pressure 119/73, heart rate 60, respiratory rate 16, room air saturation 97%, and temperature 98.2. 4. Pain intensity 01/22. 5. Fall history: The patient has not fallen in the last 3 months. 6. Blood thinner. The patient is not on a blood thinning medication. 7. Hypertension. The patient is being treated for hypertension. 8. Opioids greater than 6 weeks. The [facility]. 9. Risk assessment tool, low for opioid use. 10. Functional assessment tool, [place] [address] PAIN MANAGEMENT CONSULTATION Name: KATY CRAVEN Room: [facility]#: [id number] Admission: 09/04/19 Attend Phys: Garima Fitzpatrick MD Discharge: Date of : 68 Report #: [id number] 11. Recreational drug use: The patient denies. 12. Tobacco: The patient stopped smoking in 2010. PHYSICAL EXAMINATION: GENERAL: The patient is a well-developed, well-nourished white female. Appears her stated age. She is alert and oriented x 3. Her affect is appropriate. Speech is fluent. HEENT: Normocephalic, atraumatic. Extraocular eye muscles intact. Sclerae nonicteric. Mucous membranes are moist. NECK: Without adenopathy or JVD. HEART: Regular rate. ABDOMEN: Nontender. Bowel sounds present. EXTREMITIES: Upper extremity muscle strength judged to be 5/5 for the major muscle groups in the upper extremity. The patient has pain and discomfort in lower portion of her back with pain that radiates down the posterior portion of her back in the right buttocks, posterior portion of her right leg. L5-S1 dermatomal distribution is affected. Positive straight leg raise. IMPRESSION: Low back pain with pain in the L4-L5 dermatomal distribution as well as in the L5-S1 dermatomal distribution. RECOMMENDATION: The patient states that she is able to take her medications. They are helpful. She is aware that opioids can be problematic for certain people. She does not have any problems with the medications. She is aware that tolerance can develop. She is using her medication as prescribed. Feels that they are beneficial. She is able to work with a clear sensorium. There has been no influence on her judgment. She keeps her medications in a guarded area. She will follow up in the future as needed. Possibility of an epidural steroid injections are available. We would like to thank you for letting us participate in her care. We hope she continues to improve. <ELECTRONICALLY SIGNED> By: Garmia Fitzpatrick MD 09/16/19 [id number]. Lee Fitzpatrick MD /nt
== END ==
LOC: M.PC 05:10
DX: M54.5 Low back pain (principal); G89.29 Other chronic pain; I10 Essential (primary) hypertension; Z79.891 Long term (current) use of opiate analgesic; Z79.899 Other long term (current) drug therapy; Z88.8 Allergy status to other drugs, medicaments and biological substances; Z88.1 Allergy status to other antibiotic agents

== ENCOUNTER → 2019-10-27 | Outpatient (CLI) | payer OTHER ==
[2019-10-27 15:32] LABS: HEMATOCRIT 36.5 % (37.0-47.0); MCH 28.6 pg (26.0-34.0); MCHC 32.8 g/dL (28.0-37.0); MCV 87.2 fL (80.0-100.0); MPV 7.9 fl. (7.2-11.1); RBC 4.19 mil/uL (4.20-5.00); RDW-CV 13.5 % (10.5-14.5); WBC 5.4 thou/uL (4.0-11.0)
[2019-10-27 15:41] LABS: ALBUMIN 3.7 g/dL (3.4-5.0); CALCIUM 8.3 mg/dL (8.5-10.1); CREATININE 0.8 mg/dL (0.6-1.3); MAGNESIUM 1.9 mg/dL (1.8-2.4); POTASSIUM 3.8 mmol/L (3.5-5.1); TOTAL BILIRUBIN 0.2 mg/dL (<0.1-1.0)
== END ==
LOC: M.LAB 15:09
PROVIDERS: Internal Medicine
DX: Z01.818 Encounter for other preprocedural examination (principal)

== ENCOUNTER → 2019-10-30 | Outpatient (CLI) | payer OTHER ==
--- NOTE | ~2019-10-30 | PAINCON ---
[address] [address] PAIN MANAGEMENT CONSULTATION Name: KATY CRAVEN [id number] Admission: 10/30/19 Attend Phys: Garima Fitzpatrick MD Discharge: Date of : 68 Report #: [id number] THIS REPORT FOR: //name// CC: Rae Chandler DATE OF SERVICE: 10/30/2019 CHIEF COMPLAINT: Lumbar radicular pain, medicines continued to be helpful. HISTORY: The patient is a 49-year-old female who has been followed in the pain clinic. As you recall, she still suffers from low back pain. She is considering having an MRI in the near future. She has noticed an increase in her pain. She rates her pain as a 3/10. Pain is worse with activity. She continues to work daily. She has experienced pain down in the right buttocks area as well as the posterior portion of her leg. Pain has been problematic for a number of years. Generally, her pain is about 75% improved with her current medications of morphine, oxycodone and with the muscle relaxant, tizanidine. She does not have any problems with thinking. She is thinking clearly with a clear sensorium. She has taken the medication as prescribed. She is able to remain gainfully employed. ALLERGIES: DIPHENHYDRAMINE AND ROCEPHIN. CURRENT MEDICATIONS: Vitamin C, Saphris 10 mg sublingual at bedtime, Lovenox, topical creams, clonazepam 0.5 mg b.i.d., Lamictal 200 mg b.i.d., Prilosec 20 mg, Lidoderm jelly 2%, morphine extended release 15 mg, calcium, Nicorette gum, oxycodone 5 mg 1 p.o. t.i.d., vitamins, vitamin D, Zanaflex. PAIN CLINIC ASSESSMENT AND PQRS: 1. The patient has some osteoarthritic changes involving the low back area. She is not being treated for rheumatoid arthritis. 2. Height 5 feet 5 inches, weight 153 pounds, BMI is 25.4. 3. Vital signs: Blood pressure 124/50, heart rate 57, respiratory rate 16, room air saturation 98%, temperature 98.0. 4. Pain intensity: 12/22. 5. Fall history: The patient has not fallen in the last 3 months. 6. Blood thinner: The patient is not on a blood thinning medication. 7. Hypertension: The patient is being treated for hypertension. 8. Opioids greater than 6 weeks. The patient [facility]. 9. Risk assessment tool, low for opioid use. 10. Functional assessment tool has been reviewed. 11. Recreational drug use: The patient denies. 12. Tobacco: The patient stopped [place] [address] [address] PAIN MANAGEMENT CONSULTATION Name: KATY CRAVEN Room: [facility]#: [id number] Admission: 10/30/19 Attend Phys: Garima Fitzpatrick MD Discharge: Date of : 68 Report #: [id number] PHYSICAL EXAMINATION: GENERAL: The patient is a well-developed, well-nourished white female. Appears her stated age. She is alert and oriented x 3. Her affect is appropriate. Speech is fluent. HEENT: Normocephalic, atraumatic. Extraocular eye muscles intact. Sclerae nonicteric. Mucous membranes are moist. NECK: Without adenopathy or JVD. HEART: Regular rate. ABDOMEN: Nontender. Bowel sounds present. EXTREMITIES: Upper extremity muscle strength judged to be 5/5 for the major muscle groups in the upper extremity. The patient has pain and discomfort in lower portion of her back with pain that radiates down the posterior portion of her back in the right buttocks. This is in the L5-S1 dermatomal distribution. Positive straight leg raise. IMPRESSION: 1. Low back pain with L4-L5 dermatomal distribution as well as L5-S1 dermatomal distribution. 2. History of bipolar disease. 3. Chronic lumbar radicular pain. 4. Lumbar spondylosis. 5. Venous insufficiency and lymphatic overload. 6. Chronic pain in the back, treated with medical management using complex opioid medications. RECOMMENDATIONS: We discussed treatment options with the patient. At this juncture, we will continue with her current medical regimen. She feels that the morphine is helpful. She finds that the oxycodone is helpful. She notes tizanidine helps with the muscle spasms. She has taken her medication as prescribed. She is aware that opioid medications can be more problematic over time for some people. She has taken her medication as prescribed not showing any signs of addiction. She feels that the medications continue to be helpful and enable her to stay gainfully employed. A script for her medications have been rewritten. The patient will continue with morphine 15 mg 1 p.o. b.i.d. She will also continue with oxycodone 5 mg 1 p.o. t.i.d. She will take the tizanidine 1 p.o. t.i.d. as needed. The patient will call if she has any concerns. We would like to thank you for letting us participate in her care. She continues to find this current medication regimen effective. By: 19N. Lee Fitzpatrick MD /nt
== END ==
LOC: M.PC 01:48
DX: M47.816 Spondylosis without myelopathy or radiculopathy, lumbar region (principal); F32.9 Major depressive disorder, single episode, unspecified; G89.29 Other chronic pain

== ENCOUNTER → 2019-10-31 | Outpatient (CLI) | payer OTHER | LOC: M.MRI 09:49 | DX: M51.16 Intervertebral disc disorders with radiculopathy, lumbar region (principal); M12.88 Other specific arthropathies, not elsewhere classified, other specified site; M48.061 Spinal stenosis, lumbar region without neurogenic claudication; M51.27 Other intervertebral disc displacement, lumbosacral region; M25.78 Osteophyte, vertebrae; M51.37 Other intervertebral disc degeneration, lumbosacral region ==

== ENCOUNTER → 2019-11-06 | Outpatient (CLI) | payer OTHER ==
--- NOTE | ~2019-11-06 | PAINCON ---
[facility] [address] [place] [address] PAIN MANAGEMENT CONSULTATION Name: KATY CRAVEN [facility] [id number] Admission: 11/06/19 Attend Phys: Garima Fitzpatrick MD Discharge: Date of : 68 Report #: [id number] THIS REPORT FOR: //name// CC: Yani Jordan DATE OF SERVICE: 11/06/2019 CHIEF COMPLAINT: Chronic pain. HISTORY: The patient is a 49-year-old female who has been followed in the pain clinic because of chronic low back pain. She has undergone epidural steroid injections in the past. Continues to have pain in spite of her current medical regimen. Rates her pain as a 7/10. She recently had an MRI. She has returned to the pain clinic for review of her MRI and discussion of options. ALLERGIES: DIPHENHYDRAMINE AND ROCEPHIN. CURRENT MEDICATIONS: Vitamin C, Saphris 10 mg sublingual at bedtime, Lovenox, topical creams, clonazepam 0.5 mg b.i.d., Lamictal 200 mg b.i.d., Prilosec 20 mg, Lidoderm jelly 2%, morphine extended release 15 mg, calcium, Nicorette gum, oxycodone 5 mg 1 p.o. t.i.d., vitamins, vitamin D, Zanaflex. PAIN CLINIC ASSESSMENT AND PQRS: 1. The patient has some osteoarthritic changes involving the low back area. She is not being treated for rheumatoid arthritis. 2. Height 5 feet 5 inches, weight is 155 pounds, BMI is 25.8. 3. Vital signs: Blood pressure 126/52, heart rate 54, respiratory rate 18, room air saturation 97%, temperature 97.8. Pain score 7/10. 4. Fall history: The patient has not fallen in the last 3 months. 5. Blood thinner. The patient is not on a blood thinner at this juncture. 6. Hypertension. The patient is being treated for hypertension. 7. Opioids greater than 6 weeks. The patient [facility]. 8. Risk assessment tool, low for opioid use. 9. Functional assessment tool. 10. Recreational drug use: The patient denies. 11. Tobacco: The patient stopped smoking in 2010. PHYSICAL EXAMINATION: GENERAL: The patient is a well-developed, well-nourished white female. Appears her stated age. She is alert and oriented x 3. Her affect is appropriate. Speech is fluent. HEENT: Normocephalic, atraumatic. Extraocular eye muscles intact. Sclerae nonicteric. [place]ucous [place] [address] PAIN MANAGEMENT CONSULTATION Name: KATY CRAVEN Room: [facility]#: [id number] Admission: 11/06/19 Attend Phys: Garima Fitzpatrick MD Discharge: Date of : 68 Report #: [id number] NECK: Without adenopathy or JVD. HEART: Regular rate. ABDOMEN: Nontender. Bowel sounds present. EXTREMITIES: Upper extremity muscle strength judged to be 5/5 for the major muscle groups in the upper extremity. The patient has pain and discomfort in lower portion of her back. Has pain and discomfort that is radiating down into the buttocks area down to the posterior portion of her legs in the L5-S1 dermatomal distribution. The patient has a positive straight leg raise. IMPRESSION: 1. Low back pain in the L4-L5 as well as the L5-S1 dermatomal distribution. 2. History of bipolar disease. 3. Chronic lumbar radicular pain. 4. Lumbar spondylosis. 5. Venous insufficiency with lymphatic overload. 6. Chronic pain in the back treated with medical management and used a complex medical regimen including opioids. 7. Review of MRI. The patient had an MRI performed of her back dated 10/31/2019. The findings were reviewed. A disk was provided by the patient. We were able to pull up the images on our computer. We went through each one of the images, one at a time and described the anatomy/degenerative areas. At L3-L4, there is a mild generalized disk bulge present, combined with moderate bilateral ligamentum flavum thickening and mild posterior epidural lipomatosis. There is borderline mild central canal stenosis. There is akhm-qc-tskfboxt facet arthropathy bilaterally without significant neural foraminal stenosis. 8. L4-L5 mild generalized disk bulge and moderate ligamentum flavum thickening is present with mild posterior epidural lipomatosis. The findings combined to lead to a mild central canal stenosis. There is mild facet arthrosis bilaterally. Mild left neural foraminal stenosis developed near the exiting L4 nerve root. There is no right neural foraminal stenosis. 9. At L5-S1 endplate degeneration and degenerative disk space loss has progressed. Mild generalized disk bulge is present without central canal stenosis. There is mild facet arthropathy bilaterally. When combined with the endplate osteophytes, there is moderate right and dqeo-lh-ctmnhtbb left neural foraminal stenosis with interval progression. 10. No lumbar disk extrusions. 11. Progression of L5-S1 degenerative disk disease. Mild degeneralized disk osteophyte complex combines to contribute moderate right and kqye-qx-ubeyyoxa left neural foraminal stenosis. No central canal stenosis. 12. Borderline mild central canal stenosis at L3-L4 and at L4-L5 due to mild disk bulging, ligamentum flavum thickening and facet arthropathy. Development of mild left L4-L5 neural foraminal stenosis. 13. 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 RECOMMENDATIONS: The patient states that she had spoken with Dr. Roshan Arredondo in the past. The consideration of a spinal [place] [address] PAIN MANAGEMENT CONSULTATION Name: KATY CRAVEN Room: [facility]#: [id number] Admission: 11/06/19 Attend Phys: Garima Fitzpatrick MD Discharge: Date of : 68 Report #: [id number] considered. The patient would like to consider options regarding the spinal cord stimulator trial. We would recommend that she see a neurosurgeon in regards to her MRI findings whether or not the cervical surgery might be a more prudent option at this juncture. We would like to thank you for letting us participate in her care. We hope she continues to improve. By: [id number]. Lee Fitzpatrick MD /marianela
== END ==
LOC: M.PC 04:11
DX: M47.816 Spondylosis without myelopathy or radiculopathy, lumbar region (principal); F32.9 Major depressive disorder, single episode, unspecified

== ENCOUNTER → 2019-12-23 | Outpatient (CLI) | payer OTHER | LOC: M.RAD 09:56 | DX: M47.897 Other spondylosis, lumbosacral region (principal); M12.88 Other specific arthropathies, not elsewhere classified, other specified site; M25.78 Osteophyte, vertebrae ==

== ENCOUNTER → 2019-12-25 | Outpatient (CLI) | payer OTHER ==
--- NOTE | ~2019-12-25 | PAINCON ---
[address] [address] PAIN MANAGEMENT CONSULTATION Name: KATY CRAVEN [id number] Admission: 12/25/19 Attend Phys: Garima Fitzpatrick MD Discharge: Date of : 68 Report #: [id number] THIS REPORT FOR: //name// cc: Rae Banks Anna S. DO ~ THIS REPORT FOR: //name// CC: Rae Jordan DATE OF SERVICE: 12/25/2019 PRIMARY PHYSICIAN: Yani Sheffield DO CHIEF COMPLAINT: Continued low back pain, "I was thinking about getting a spinal cord stimulator evaluation." HISTORY OF PRESENT ILLNESS: The patient is a 49-year-old female, who has been followed in the pain clinic. As you may recall, she suffers from chronic back pain. She has undergone epidural steroid injections in the past. They have not been significantly beneficial long-term. She continues to have pain and rates it as a 5/10 today. She feels that her medications are helpful. Her weekly pain scores between 3 and 10. She has been considering a spinal cord stimulator. She has an appointment to see a psychiatrist on 01/07/2020. She continues to have pain while sitting as well as with activities of daily living. She continues to use Celebrex. She notes improvement in her pain with morphine, oxycodone, and the muscle relaxant, tizanidine. Overall, her pain is about 50% or 75% improved. ALLERGIES: DIPHENHYDRAMINE, ROCEPHIN. CURRENT MEDICATIONS: Vitamin C, Saphris 10 mg sublingual at bedtime, Lovenox, topical creams, clonazepam 0.5 mg b.i.d., Lamictal 200 mg b.i.d., Prilosec 20 mg, Lidoderm jelly 2%, morphine extended release 15 mg, calcium, Nicorette gum, oxycodone 5 mg 1 p.o. t.i.d., vitamins, vitamin D, Zanaflex. PAIN CLINIC ASSESSMENT AND PQRS: 1. The patient does have some arthritic changes involving her low back. She is not being treated for rheumatoid arthritis. 2. Height 5 feet 5 inches, weight 162 pounds, BMI is 27.0. 3. Vital signs: Blood pressure 127/69, heart rate 69, respiratory rate 16, room air saturation 100%, temperature 98.2. 4. Pain intensity 5/10. 5. Fall history: The patient has not fallen since we saw her last. 6. Blood thinner. The patient is not on a [place] [address] PAIN MANAGEMENT CONSULTATION Name: HERBER,KATY Philly Room: [facility]#: [id number] Admission: 12/25/19 Attend Phys: Garima Fitzpatrick MD Discharge: Date of : 68 Report #: [id number] juncture. 7. Hypertension. The patient is being treated for hypertension. 8. Opioids greater than 6 weeks. The patient [facility]. 9. Risk assessment tool: Low for opioid use. 10. Functional assessment tool. 11. Recreational drug use: The patient denies. 12. Tobacco: The patient stopped smoking in 2010. PHYSICAL EXAMINATION: GENERAL: The patient is a well-developed, well-nourished white female. Appears her stated age. She is alert and oriented x 3. Her affect is appropriate. Speech is fluent. HEENT: Normocephalic, atraumatic. Extraocular eye muscles are intact. Sclerae are nonicteric. Mucous membranes are moist. NECK: Without adenopathy or JVD. ABDOMEN: Nontender. Bowel sounds present. EXTREMITIES: Upper extremity muscle strength judged to be 5/5 for the major muscle groups in the upper extremities. The patient has pain and discomfort in the lower portion of her back. Her pain and discomfort continues to radiate down into the buttocks area and down the posterior portion of her legs in the L5-S1 dermatomal distribution. The patient has positive straight leg raise. IMPRESSION: 1. History of chronic low back pain with pain in the L4-L5 as well as the L5-S1 dermatomal distribution. 2. History of bipolar disease. 3. Chronic lumbar radicular pain. 4. Lumbar spondylosis. 5. Venous insufficiency with lymphatic overload. 6. Chronic pain in the back, treated with medical management and complex medical use of opioids. RECOMMENDATIONS: We discussed treatment options with the patient. At this juncture, we will continue with her current medical regimen. She had spoken with Dr. Roshan Arredondo regarding the possibility of a spinal cord stimulator. The patient would like to proceed with that option at this juncture. She is scheduled to see a psychiatrist in the near future. We will then have her follow up with her physician, who does spinal cord stimulation. A script for her medications has been rewritten. She will continue with OxyIR 5 mg 1 p.o. t.i.d., morphine extended release 15 mg 1 p.o. b.i.d. She will continue to monitor her GI tract. She has been provided with Celebrex 200 mg 1 p.o. daily. She will use tizanidine 4 mg 1 p.o. t.i.d. p.r.n. [place] [address] PAIN MANAGEMENT CONSULTATION Name: KATY CRAVEN Room: [facility]#: [id number] Admission: 12/25/19 Attend Phys: Garima Fitzpatrick MD Discharge: Date of : 68 Report #: [id number] We would like to thank you for letting us participate in her care. We hope she continues to improve. By: [id number]. Lee Fitzpatrick MD /nt
== END ==
LOC: M.PC 06:03
DX: M47.816 Spondylosis without myelopathy or radiculopathy, lumbar region (principal); F32.9 Major depressive disorder, single episode, unspecified; G89.29 Other chronic pain

== ENCOUNTER → 2020-02-19 | Outpatient (CLI) | payer OTHER ==
--- NOTE | 2020-03-02 08:21 | PAINCON ---
[place] [address] PAIN MANAGEMENT CONSULTATION Name: KATY CRAVEN [id number] Admission: 02/19/20 Attend Phys: Garima Fitzpatrick MD Discharge: Date of : 68 Report #: [id number] THIS REPORT FOR: //name// cc: Yani Sheffield Linda J. DO ~ THIS REPORT FOR: //name// CC: Rae Chandler DATE OF SERVICE: 02/19/2020 PRIMARY CARE PHYSICIAN: Rae Banks DO CHIEF COMPLAINT: Lumbar back pain. HISTORY: The patient is a 49-year-old female who has been seen and followed in the pain clinic. As you recall, she suffers from chronic back pain. She has undergone epidural steroid injections in the past. 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 She is contemplating spinal cord stimulation. She continues to work through the appropriate prerequisites for spinal cord stimulator placement. She has returned today for renewal of her medications. She is having no complication from their use. She has returned today for refill of her medications. ALLERGIES: DIPHENHYDRAMINE AND ROCEPHIN. CURRENT MEDICATIONS: Vitamin C, Saphris 10 mg sublingual at bedtime, Lovenox, topical creams, clonazepam 0.5 mg b.i.d., Lamictal 200 mg b.i.d., Prilosec 20 mg, Lidoderm jelly 2%, morphine extended release 15 mg, calcium, Nicorette gum, oxycodone 5 mg 1 p.o. t.i.d., vitamins, vitamin D, and Zanaflex. PAIN CLINIC ASSESSMENT AND PQRS: 1. The patient does have some arthritic changes in her back. She is not being treated for rheumatoid arthritis. 2. Height 5 feet 5 inches, weight 164 pounds, BMI is 27. 3. Vital signs: Blood pressure 127/76, heart rate 59, respiratory rate 16, room air saturation is 98%. 4. Temperature 98.2. 5. Pain intensity 5/10. 6. Fall history: The patient has not fallen since we saw her last. 7. Blood thinner. The patient is not on a blood thinning medication at this juncture. 8. Hypertension. The patient is being treated for hypertension. 9. Opioids greater than 6 weeks. [place] [address] PAIN MANAGEMENT CONSULTATION Name: KATY CRAVEN Room: [facility]#: [id number] Admission: 02/19/20 Attend Phys: Garima Fitzpatrick MD Discharge: Date of : 68 Report #: [id number] source, the pain clinic. 10. Risk assessment tool, low for opioid use. 11. Functional assessment tool. 12. Recreational drug use. The patient denies use of recreational drugs. 13. Tobacco: The patient stopped smoking in 2010. PHYSICAL EXAMINATION: GENERAL: The patient is a well-developed, well-nourished white female. Appears her stated age. She is alert and oriented x 3. Her affect is appropriate. Speech is fluent. HEENT: Normocephalic, atraumatic. Extraocular eye muscles intact. Sclerae nonicteric. Mucous membranes are moist. NECK: Without adenopathy or JVD. ABDOMEN: Nontender. Bowel sounds present. EXTREMITIES: Upper extremity muscle strength judged to be 5/5 for the major muscle groups in the upper extremity. The patient has pain and discomfort in lower portion of her back. Has pain that radiates down into the buttocks area in the posterior portion of her legs in the L5-S1 dermatomal distribution. IMPRESSION: 1. History of chronic low back pain with pain in the L4-L5 as well as the L5-S1 dermatomal distribution. 2. History of bipolar disease. 3. Chronic lumbar radicular pain. 4. Lumbar spondylosis. 5. Venous insufficiency with lymphatic overload. 6. Chronic pain in the back treated and medically managed with complex medical management using opioids. RECOMMENDATIONS: We discussed treatment options with the patient. At this juncture, we will continue with her medications. A script for Celebrex will be continued. She will monitor this medication. If she notes some GI complaints, she will stop taking the medications. She will also continue with tizanidine help with muscle spasms. The patient will continue with morphine 15 mg 1 p.o. b.i.d. She will also take the short-acting medication oxycodone 5 mg 1 p.o. t.i.d. for breakthrough pain. The patient is in the process of getting necessary prerequisites done for placement of a spinal cord stimulator. We would like to thank you for letting us participate in her care. We hope she continues to improve. <ELECTRONICALLY SIGNED> By: Garima Fitzpatrick MD 03/02/20 0821 [id number] Fitzpatrick MD /PMT
== END ==
LOC: M.PC 01:52
DX: M47.26 Other spondylosis with radiculopathy, lumbar region (principal); I87.2 Venous insufficiency (chronic) (peripheral); G89.4 Chronic pain syndrome; Z86.59 Personal history of other mental and behavioral disorders; Z87.891 Personal history of nicotine dependence; Z88.8 Allergy status to other drugs, medicaments and biological substances; Z79.899 Other long term (current) drug therapy

== ENCOUNTER → 2020-03-11 | Outpatient (CLI) | payer OTHER | LOC: M.LAB 10:55 | PROVIDERS: ATTEND Family Medicine | DX: U07.1 COVID-19 (principal) ==

== ENCOUNTER → 2020-05-06 | Outpatient (CLI) | payer OTHER ==
--- NOTE | 2020-05-13 22:53 | PAINCON ---
[address] [address] PAIN MANAGEMENT CONSULTATION Name: KATY CRAVEN Room: [facility]#: [id number] Admission: 05/06/20 Attend Phys: Garima Fitzpatrick MD Discharge: Date of : 68 Report #: [id number] THIS REPORT FOR: //name// cc: Yani Sheffield Linda J. DO ~ THIS REPORT FOR: //name// CC: Yani Fitzpatrick DATE OF SERVICE: 05/06/2020 CHIEF COMPLAINT: Here for medication renewal. HISTORY: The patient is a 49-year-old female who has been followed in the pain clinic because of chronic pain. She suffers from chronic back pain. She has undergone epidural steroid injections in the past. The injections became less fruitful. At this juncture, she is contemplating a spinal cord stimulator to help with pain control. She feels that her medications continue to be helpful. She rates her pain today as a 5/10. It involves the low back area. She reports that she had contacted COVID-19. She feels at this point that things are improving. She notes that activity, sitting, lifting and bending can be problematic. Pain improves with use of rest. ALLERGIES: DIPHENHYDRAMINE AND ROCEPHIN. CURRENT MEDICATIONS: Vitamin C, Saphris 10 mg sublingual at bedtime, Lovenox, topical creams, clonazepam 0.5 mg b.i.d., Lamictal 200 mg b.i.d., Prilosec 20 mg, Lidoderm jelly 2%, morphine extended release 15 mg, calcium, Nicorette gum, oxycodone 5 mg 1 p.o. t.i.d., vitamin, vitamin D, Zanaflex. PAIN CLINIC ASSESSMENT/PQRS: 1. The patient does have some arthritic changes in her back. She is not being treated for rheumatoid arthritis. 2. Height 5 feet 5 inches, weight 160 pounds, BMI is 26.8. 3. Vital Signs: Blood pressure 198/55, heart rate 56, respiratory rate 16, room air saturation 96%, temperature 98.8. 4. Pain score 5/10. 5. Fall history: The patient has not fallen in the last 3 months. 6. Blood thinner. The patient is not on a blood thinning medication. 7. Hypertension. The patient is being treated for hypertension. 8. Opioids greater than 6 weeks. The patient receives medication from one source the pain clinic. 9. Risk assessment tool, low for opioid use. 10. Functional assessment tool reviewed. 11. Recreational drug [place] [address] PAIN MANAGEMENT CONSULTATION Name: KATY CRAVEN [place] Room: [facility]#: [id number] Admission: 05/06/20 Attend Phys: Garima Fitzpatrick MD Discharge: Date of : 68 Report #: [id number] 12. Tobacco: The patient stopped smoking in 2010. 13. Alcohol. The patient denies frequent use of alcoholic beverages. PHYSICAL EXAMINATION: GENERAL: The patient is a well-developed, well-nourished white female. Appears her stated age. She is alert and oriented x 3. Her affect is appropriate. Speech is fluent. HEENT: Normocephalic, atraumatic. Extraocular eye muscles intact. Sclerae nonicteric. Mucous membranes are moist. The patient is wearing a mask. NECK: Without adenopathy. HEART: Regular rate. ABDOMEN: Nontender. EXTREMITIES: Upper extremity muscle strength judged to be 5/5 for the major muscle groups in the upper extremity. The patient has pain and discomfort in the lower portion of her back. She has pain that radiates down to the buttocks and the posterior portion of her legs in the L5-S1 dermatomal distribution. IMPRESSION: 1. History of chronic low back pain with pain in the L4-L5 as well as the L5-S1 dermatomal distribution. 2. History of bipolar disease. 3. Chronic lumbar radicular pain. 4. Lumbar spondylosis. 5. Venous insufficiency with lymphatic overload. 6. Chronic pain of the back, treated medically with a complex management using opioids. RECOMMENDATIONS: We discussed treatment options with the patient. At this juncture, we will continue with her medications. She feels medications continue to be helpful. They are not cause any problems with her sensorium. She is able to think clearly and perform her job without problems. She is aware that certain patients have developed addiction as a result of use of opioids. She feels the medications are helpful and is not causing problems. She is still in the process of trying to get a spinal cord stimulator placed to help control her pain. A script for her medications have been written. She will continue with morphine 15 mg 1 p.o. b.i.d. She will use, Celebrex 200 mg. She will monitor her GI tract. She notes any GI discomfort, she will stop taking this medication. She feels that tizanidine as a muscle relaxant is beneficial and we will continue with that medication. She will call us if she has any concerns. The patient will take oxycodone 5 mg 1 p.o. t.i.d. for breakthrough pain. We would like to thank you for letting us to participate in her care. We hope she continues to improve. The patient is aware that opioid medications over [facility] [address] [place] [address] PAIN MANAGEMENT CONSULTATION Name: KATY CRAVEN Room: [facility]#: [id number] Admission: 05/06/20 Attend Phys: Garima Fitzpatrick MD Discharge: Date of : 68 Report #: [id number] time generally start to decrease and pain relief because of development of tolerance. <ELECTRONICALLY SIGNED> By: Garima Fitzpatrick MD 05/13/20 2253 [id number]. Lee Fitzpatrick MD /PMT
== END ==
LOC: M.PC 04:26
PROVIDERS: ATTEND Anesthesiology Pain Medicine
DX: G89.29 Other chronic pain (principal); M47.816 Spondylosis without myelopathy or radiculopathy, lumbar region; I10 Essential (primary) hypertension; I71.4 Abdominal aortic aneurysm, without rupture; Z88.8 Allergy status to other drugs, medicaments and biological substances; Z68.26 Body mass index [BMI] 26.0-26.9, adult; Z79.899 Other long term (current) drug therapy

== ENCOUNTER → 2020-07-13 | Outpatient (CLI) | payer OTHER ==
--- NOTE | ~2020-07-13 | PAINCON ---
[address] [address] PAIN MANAGEMENT CONSULTATION Name: KATY CRAVEN [facility] [id number] Admission: 07/13/20 Attend Phys: Garima Fitzpatrick MD Discharge: Date of : 68 Report #: [id number] THIS REPORT FOR: //name// cc: Yani Sheffield Linda J. DO ~ THIS REPORT FOR: //name// CC: Yani Fitzpatrick DATE OF SERVICE: 07/13/2020 CHIEF COMPLAINT: Here for medication renewal. HISTORY: The patient is a 50-year-old female who has been followed in the Pain Clinic. She suffers from chronic pain. She has undergone a series of epidural steroid injections in the past ____ longer efficacious. She has contemplated undergoing treatment with spinal cord stimulator placement. She feels at this juncture, she would like to proceed with that treatment course. She has been sheltering at home because of COVID-19. She notes that her pain increases with activities of daily living such as sitting, bending. She rates her pain today as 4/10. She has found that opioid medications continue to be helpful. ALLERGIES: DIPHENHYDRAMINE AND ROCEPHIN. CURRENT MEDICATIONS: Vitamin C, Saphris 10 mg sublingual at bedtime, Lovenox, topical creams, clonazepam 0.5 mg b.i.d., Lamictal 200 mg b.i.d., Prilosec 20 mg, Lidoderm jelly 2%, morphine extended release 15 mg, calcium, Nicorette gum, oxycodone 5 mg 1 p.o. t.i.d., vitamins, vitamin D, and Zanaflex. PAIN CLINIC ASSESSMENT AND PQRS: 1. The patient does have some arthritic changes in her back. She is not being treated for rheumatoid arthritis. 2. Height 5 feet 5 inches, weight 160 pounds, BMI 27. 3. Vital signs: Blood pressure is 125/56, heart rate 50, respiratory rate 16, room air saturation 95%, and temperature 97. 4. Pain score 4/10. 5. Fall history: The patient has not fallen in the last 3 months. 6. Blood thinner. The patient is not on a blood thinning medication. 7. Hypertension. The patient is being treated for hypertension. 8. Opioids greater than 6 weeks. The patient received medication from the Pain Clinic. 9. Risk assessment tool, low for opioid use. 10. Functional assessment tool reviewed. 11. Recreational drug use. The patient denies. 12. Tobacco: The patient stopped smoking in [address] [address] PAIN MANAGEMENT CONSULTATION Name: KATY CRAVEN Room: [facility]#: [id number] Admission: 07/13/20 Attend Phys: Garima Fitzpatrick MD Discharge: Date of : 68 Report #: [id number] 13. Alcohol. The patient denies frequent use of alcoholic beverages. PHYSICAL EXAMINATION: GENERAL: The patient is a well-developed, well-nourished white female. Appears her stated age. She is alert and oriented x 3. Her affect is appropriate. Speech is fluent. HEENT: Normocephalic, atraumatic. Extraocular eye muscles intact. Sclerae nonicteric. Mucous membranes are moist. The patient is wearing a mask. NECK: Without adenopathy. HEART: Regular rate. ABDOMEN: Nontender. EXTREMITIES: Upper extremity muscle strength judged to be 5/5 for the major muscle groups in the upper extremity. The patient has pain and discomfort in lower portion of her back. The patient has pain that radiates down the buttocks and posterior portion of her legs in the L5-S1 dermatomal distribution. IMPRESSION: 1. History of chronic back pain in the L4-L5 area as well as the L5-S1 area. 2. History of bipolar disease. 3. Chronic lumbar radicular pain. 4. Lumbar spondylosis. 5. Venous insufficiency with lymphatic overload. 6. Chronic pain in the back, treated medically with complex medical management using opioids. RECOMMENDATIONS: We discussed treatment options with the patient. At this juncture, we will continue with her medications. She would like to proceed with the evaluation for spinal cord stimulator. We will have Dr. Tony Arredondo review of her record and go from there. A script for her medications of morphine 15 mg 1 p.o. b.i.d. has been provided. The patient will also continue with tizanidine 4 mg t.i.d. p.r.n. A script for the oxycodone 5 mg t.i.d. have been provided. The patient will also continue with morphine sulfate extended release 15 mg 1 p.o. b.i.d. She feels that the Celebrex medication is helpful. She is not having any GI complaints. We would like to thank you for letting us participate in her care. We hope she continues to improve. By: [id number]. Lee Fitzpatrick MD /nt
== END ==
LOC: M.PC 08:13
PROVIDERS: ATTEND Anesthesiology Pain Medicine
DX: M47.26 Other spondylosis with radiculopathy, lumbar region (principal); I87.2 Venous insufficiency (chronic) (peripheral); I10 Essential (primary) hypertension

== ENCOUNTER → 2020-10-13 | Outpatient (CLI) | payer OTHER ==
[~2020-10-13] MED LIST changes: +CALTRATE PLUS1 EACH PO; +NIACIN 500 MG500 M1 PO
--- NOTE | 2020-10-13 10:00 | EKG ---
[place] [address] ELECTROCARDIOGRAM REPORT Name: KATY CRAVEN Room: [facility]#: [id number] Admission: 10/13/20 Attend Phys: Jeet Tavarez, Discharge: Date of : 68 Date of Service: 10/13/2003 Report #: [id number] THIS REPORT FOR: //name// [facility] Test Date: 2020-10-13 Test Time: 09:03:20 Pat Name: KATY CRAVEN Department: Room: Gender: F [employer]: : 1970 Requested By: Jeet Tavarez Order Number: [id number] Shoaib SORIA: Higinio Castro Measurements Intervals [place] Rate: 50 P: 46 MO: 146 QRS: 18 QRSD: 88 T: 6 QT: 453 QTc: 414 Interpretive Statements Sinus rhythm at a mildly bradycardic rate Compared to ECG 12/14/2016 12:34:11 T-wave abnormality no longer present Electronically Signed On 10-13-2020 10:00:20 PC MAINTENANCE TECHNICIAN by Higinio Castro [email or web address] <ELECTRONICALLY SIGNED> By: Higinio Castro MD, FACC 10/13/20 1000 2 2 Higinio Castro MD, FAC /EPI
== END ==
LOC: M.CRD 08:49 → M.LAB 08:49
PROVIDERS: ATTEND Pain Medicine Pain Medicine
DX: Z01.812 Encounter for preprocedural laboratory examination (principal); Z20.828 Contact with and (suspected) exposure to other viral communicable diseases

== ENCOUNTER → 2020-11-02 | Outpatient (CLI) | payer OTHER | LOC: M.PC 08:20 | PROVIDERS: ATTEND Anesthesiology Pain Medicine | DX: M54.5 Low back pain (principal); Z79.891 Long term (current) use of opiate analgesic; Z79.899 Other long term (current) drug therapy; Z88.8 Allergy status to other drugs, medicaments and biological substances ==

== ENCOUNTER 2020-12-04 10:46 | Emergency (ER) | payer OTHER ==
[~2020-12-04] VITALS: Ht 165.1 cm; Wt 72.6 kg
[2020-12-04 11:58] VITALS: BP 127/53
== END 2020-12-04 11:59 | disposition home or self-care (01) ==
LOC: M.ERS 10:46
DX: M54.5 Low back pain (principal); Z88.6 Allergy status to analgesic agent; Z88.1 Allergy status to other antibiotic agents; Z88.8 Allergy status to other drugs, medicaments and biological substances

== ENCOUNTER → 2020-12-28 | Outpatient (CLI) | payer OTHER | LOC: M.PC 08:10 | PROVIDERS: ATTEND Anesthesiology Pain Medicine | DX: Z76.0 Encounter for issue of repeat prescription (principal); M96.1 Postlaminectomy syndrome, not elsewhere classified; M54.16 Radiculopathy, lumbar region; M47.26 Other spondylosis with radiculopathy, lumbar region; I87.2 Venous insufficiency (chronic) (peripheral); G89.29 Other chronic pain; F11.20 Opioid dependence, uncomplicated; Z88.8 Allergy status to other drugs, medicaments and biological substances; Z79.899 Other long term (current) drug therapy ==

== ENCOUNTER → 2021-02-08 | Outpatient (CLI) | payer OTHER ==
[~2021-02-08] MED LIST changes: +ROXICODONE5 MG PO
== END ==
LOC: M.PC 09:19
PROVIDERS: ATTEND Anesthesiology Pain Medicine
DX: M47.816 Spondylosis without myelopathy or radiculopathy, lumbar region (principal); G89.29 Other chronic pain; I87.2 Venous insufficiency (chronic) (peripheral); M54.5 Low back pain; M54.9 Dorsalgia, unspecified

== ENCOUNTER → 2021-05-24 | Outpatient (CLI) | payer OTHER | LOC: M.PC 07:44 | PROVIDERS: ATTEND Anesthesiology Pain Medicine | DX: G89.29 Other chronic pain (principal); M47.26 Other spondylosis with radiculopathy, lumbar region; I87.2 Venous insufficiency (chronic) (peripheral); Z68.30 Body mass index [BMI] 30.0-30.9, adult; Z98.890 Other specified postprocedural states; Z88.8 Allergy status to other drugs, medicaments and biological substances; Z79.891 Long term (current) use of opiate analgesic; Z79.899 Other long term (current) drug therapy ==

== ENCOUNTER → 2021-08-16 | Outpatient (CLI) | payer OTHER ==
[~2021-08-16] MED LIST changes: +LIPITOR 40 MG T40 M1 PO
== END ==
LOC: M.PC 07:35
PROVIDERS: ATTEND Anesthesiology Pain Medicine
DX: G89.29 Other chronic pain (principal); M47.26 Other spondylosis with radiculopathy, lumbar region; I87.2 Venous insufficiency (chronic) (peripheral); Z88.8 Allergy status to other drugs, medicaments and biological substances; Z79.899 Other long term (current) drug therapy